=== PATIENT | female | born 1990 | race Two or more races ===

== ENCOUNTER 2022-12-17 22:10 | Emergency (ER) | payer MEDICAID, OTHER ==
[~2022-12-17] VITALS: Ht 162.6 cm; Wt 81.0 kg
[2022-12-17] MEDS ORDERED: IOHEXOL 350 MG/ML 100ML IJ ONE (23:08)
[2022-12-18] MEDS ORDERED: ONDA-144 PO (03:28)
[2022-12-18] MEDS ORDERED: PERCOT PO (03:28)
[2022-12-18] MEDS ORDERED: OXYCODONE W/ ACETAMINOPHEN 5/325MG TABLET PO ONE (03:30)
[2022-12-18] MEDS ORDERED: ONDANSETRON ODT 4 MG TAB PO ONE (03:30)
[2022-12-18 04:32] VITALS: BP 119/74
== END 2022-12-18 04:35 | disposition home or self-care (01) ==
LOC: ER 22:10 → EDBD 22:10 → ER 12-18 04:32
DX: S62.303A Unspecified fracture of third metacarpal bone, left hand, initial encounter for closed fracture (principal); S62.307A Unspecified fracture of fifth metacarpal bone, left hand, initial encounter for closed fracture; R51.9 Headache, unspecified; V49.9XXA Car occupant (driver) (passenger) injured in unspecified traffic accident, initial encounter; Y93.89 Activity, other specified; Y92.488 Other paved roadways as the place of occurrence of the external cause; Y99.8 Other external cause status
CPT/HCPCS: 70450; 71046; 71250; 72125; 73120; 74177; 99285; Q0162; Q9967